=== PATIENT | female | born 1940 | race Caucasian/White ===

== ENCOUNTER 2024-02-24 06:57 | Day surgery (SDC) | payer MEDICARE, OTHER, SELFPAY ==
[2024-02-12 06:56] VITALS: BMI 21.2
[2024-02-24 11:12] VITALS: BMI 21.2
[2024-02-24 11:13] VITALS: BP 155/82
[2024-02-24] MEDS: TYLENOL 1000 MG PO (11:23)
[2024-02-24] MEDS: NORMOSOL-R/PLASMALYTE-A 1000 IV (11:36)
--- NOTE | 2024-02-24 12:00 | W.SUR.PREOP ---
Pre-Operative Surgical Note
-
I have examined this patient prior to the performance of the scheduled procedure.
The patient's condition is unchanged from the time of the current History and
Physical and the patient is able to undergo the scheduled procedure.
[2024-02-24 14:03] VITALS: BP 115/79
[2024-02-24 14:15] VITALS: BP 105/80
[2024-02-24 14:31] VITALS: BP 121/91
[2024-02-24 14:45] VITALS: BP 140/66
--- NOTE | 2024-02-24 14:51 | W.IMMPOSTOP ---
Surgical Immed Post Op Note
-
Primary Surgeon: ELIAS Hughes MD
Assisting Surgeon:
Pre-op Diagnosis: Scalp wound, basal cell carcinoma, history of Mohs
Post-op Diagnosis: Same
Procedure Performed: Removal of outer cortex of calvarium via burring, application of dermal substitute, 5 x 5 cm
Anesthesia Type: Sedation
Specimen / Cultures: None
Estimated Blood Loss: 15 cc
Complications: None
Operative Findings: As expected
--- NOTE | 2024-02-24 14:52 | OR.RPT ---
Operative Report
Operative Report
Date of surgery: 02/24/2024
Surgeon: Geremias Hughes MD
Preoperative diagnosis: Basal cell carcinoma, scalp wound, history of Mohs
Postoperative diagnosis: Same
Procedure:
1. Removal of outer cortex of calvarium via burring
2. Wound bed prep for graft, calvarium, 5 x 5 cm
3. Application of dermal substitute 5 x 5 cm, scalp
Anesthesia: Sedation
EBL: 10 cc
Complications: None
Indications for procedure: Patient is an 83-year-old female with a history of skin cancer status post Mohs surgery. She was left with a large calvarial defect in the parietal region. Attempts were made to manage this with wound care however the
paracranium desiccated leaving her with an open scalp defect with exposed bone over an area 5 x 5 cm. No infection was present. We discussed her options at length including adjacent tissue transfer via scalp flaps as well as removal of the outer
cortex of the calvarium with application of dermal substitute as a bridge to grafting or healing by secondary intention. She preferred to avoid additional incisions on her scalp and wanted to proceed with the application of dermal substitute. As
such a plan was made for burring of the outer cortex of the calvarium with application of Integra. Risks were reviewed at length including bleeding, graft failure, infection. She understood these risks desire to proceed and was consented
accordingly.
Procedure in detail: Patient was identified preoperatively and the surgical site was confirmed to be the posterior scalp and calvarium. All questions were answered consents were confirmed. Patient was taken back to the operating room placed in a
lateral decubitus position and anesthesia was provided via IV sedation. Timeout the patient safety was performed and was confirmed that preoperative antibiotics had been administered and SCDs were in place. Off the field, 1% lidocaine with
epinephrine was injected around the wound. The patient was prepped with Betadine solution and draped in the usual sterile fashion. Procedure began with the wound bed preparation consisting of excision of the periwound with a 15 blade. Burring was
then performed with a pineapple bur over the exposed outer cortex of the calvarium. This was done until healthy bleeding of the intracortical space was encountered. No defects were created with the inner cortex. Hemostasis was ensured and the
wound was thoroughly irrigated. A 5 x 5 sheet of Integra was then sutured over the defect with 4-0 chromic. A bolster dressing was applied with a series of silk sutures, Xeroform, cotton balls and surgical lubricant. Patient tolerated the
procedure well was performed out complication. All counts were correct at the end the case. She was taken the PACU for further care.
[2024-02-24 15:00] VITALS: BP 135/89
== END 2024-02-24 15:26 | disposition home or self-care (01) ==
LOC: SDS 06:57
PROVIDERS: ATTENDING PHYSICIAN Surgery Plastic and Reconstructive Surgery; FAMILY PHYSICIAN Family Medicine
DX: C44.41 Basal cell carcinoma of skin of scalp and neck (principal); Z98.890 Other specified postprocedural states
CPT/HCPCS: 15275; 15004; Q4108

== ENCOUNTER 2024-12-06 17:18 | Inpatient (IN) | payer MEDICARE, OTHER, SELFPAY ==
[2024-12-06 11:44] VITALS: BP 139/95
--- NOTE | 2024-12-06 15:17 | ED.GENMED ---
History of Present Illness
General
Chief Complaint: Insect Sting
Source: patient
Time Seen by Provider: 12/06/24 14:34
History of Present Illness
History of Present Illness:
84-year-old female with past medical history of hypertension, hyperlipidemia presenting to the emergency department at the request of primary care's office who evaluated the patient earlier today with concern for worsening cellulitis to the right
posterior thigh. Approximately 1 week ago patient noticed a tick on the back of her right leg which she was able to remove without any difficulty, 2 days later subsequently developed what appeared to be an erythema migrans rash, went to primary
care. Has been on doxycycline for the last 6 days. Despite this medication patient notes worsening erythema, pain and warmth, went to the primary care office today who referred the patient to the ER for anticipated admission for IV antibiotics.
Patient denies any fevers but does admit to some chills. She denies any headaches, visual disturbances, focal weakness or numbness, chest pain or shortness of breath, cough or any other concerns.
Past History
Past History
ED Past Medical History: HTN, Hypercholesterolemia and Other (Osteoporosis, osteoarthritis)
ED Past Surgical History: Gynecological (Hysterectomy) and Other (Cystocele, rectocele repair)
Social History
Tobacco: Non-smoker
Alcohol: None
Drug: None
Personal:
Living: with family
Employment: Retired
Family History
Family History: Other (Noncontributory)
Review of Systems
Review of Systems
All Other Systems: ROS reviewed and negative except as documented in HPI and ROS
Phy Exam
Physical Exam
Physical Exam:
GENERAL: Alert , in no apparent distress
EYE: conjunctiva clear
NECK: Supple
ENT: o/p clr, mmm.
CARDIAC: Regular rate and rhythm
LUNGS: Clear breath sounds bilaterally, no acute respiratory distress, no wheezes/rales/rhonchi
NEUROLOGICAL: Alert and oriented
SKIN: Warm and dry, posterior right thigh has significant erythema along the distal two thirds of the thigh going both medial and lateral but sparing the anterior aspect of the thigh. Erythema is a deep red, indurated, hot to the touch and tender,
nonblanching, none weeping
MUSCULOSKELETAL: well perfused.
PSYCH: Normal and appropriate interaction.
Scores
Heart Failure Risk
Heart Failure Risk Score: Not Applicable
Heart Score for Chest Pain Patients
STEMI patient?: Not applicable
Withdrawal Assessment of Alcohol
Withdrawal Assessment Completed?: Not applicable
Course
Orders/Labs/Results
Orders:
Orders
12/06/24 14:44
Basic Metabolic Panel Urgent
CRP [C-Reactive Protein] Urgent
Complete Blood Count/With Diff Urgent
ESR [Erythrocyte Sed Rate] Urgent
Lyme Progressive Urgent
Venous Doppler Lwr Ext Rt [US Periph Venous LOWER Ext RT] Urgent
Comment:
Reason For Exam: edema, erythema
12/06/24 14:49
Piperacillin/Tazo 3.375 Gram [Zosyn] 3.375 gram in 50 ml IV NOW
12/06/24 15:19
Vancomycin [Vancocin] 2,000 mg 0.9% Sodium Chloride 500 ml [Nss] 500 ml IV NOW
Vital Signs
Initial and Last Documented VS:
Initial Vital Signs
Temp Pulse Resp BP Pulse Ox
98.0 F 94 22 139/95 94
12/06/24 11:44 12/06/24 11:44 12/06/24 11:44 12/06/24 11:44 12/06/24 11:44
Last Documented Vital Signs
Temp Pulse Resp BP Pulse Ox
98.7 F 84 18 118/74 94
12/06/24 15:27 12/06/24 15:27 12/06/24 15:27 12/06/24 15:27 12/06/24 15:27
MDM/Problems Addressed
Differential Diagnosis Includes:
Cellulitis
Abscess
Slightly less concern for erythema migrans/Lyme rash
DVT/SVT
MDM/Problems Addressed:
84-year-old female presenting to the ER at the request of her primary care provider for evaluation of worsening erythema to the left posterior thigh. Patient has been on oral doxycycline for 6 days with a presumed erythema migrans rash but has not
had any improvement. Patient is in no acute distress and otherwise afebrile. Will check labs, ultrasound and initiate treatment with Vanco and Zosyn. Anticipate admission
*Radiology
Radiology exam reviewed: radiology read reviewed
*Pulse Oximetry
SaO2: 94
Oxygen Mode of Delivery: Room air
Patient hypoxic: no
*Critical Care Note
Total Time (30-74mins, 75-104mins- exclusive of procedures): Not Applicable
Data Reviewed
Review of Other/Old Records Reveals: Labs and Records
Patient Management
Discussion with other providers: Hospitalist
Escalation/DeEscalation of care consider admission/obs:
Ultrasound negative for DVT. Will admit for further IV antibiotic treatment and monitoring. Hospitalist team accepts for continued evaluation.
ED Attending Note
-
Portions of this chart may have been created with voice recognition software.� Occasional wrong word or��sound alike� substitutions may have occurred due to the inherent limitations of voice recognition software.
Discharge Plan
Departure
Patient Disposition: Admit
Date of Disposition: 12/06/24
Time of Disposition: 16:01
Presentation/result/management discussed w/ accepting MD/DO: Hospitalist
Discharge Problem:
Cellulitis of right thigh
Prescriptions:
No Action
atorvastatin 10 MG tablet
10 mg PO QPM Qty: 0
atenolol 25 MG tablet
25 mg PO QPM Qty: 0
clonazepam 0.5 MG tablet
0.5 mg PO HS
calcium carbonate-vitamin D3 [Calcium 500 + D] 1 EACH tablet
1 tab PO QPM
polyethylene glycol 3350 [Miralax] 17 gram Powder In Packet
8.5 g PO Q48H
cetirizine [Zyrtec] 10 mg Tablet
10 mg PO DAILYPRN PRN (Reason: allergies)
meloxicam 7.5 mg Tablet
7.5 mg PO DAILY
fluticasone propionate [Flonase] 50 mcg/actuation [place],Suspension
1 spray INTRANASAL DAILYPRN PRN (Reason: allergies)
ipratropium bromide [Atrovent] 21 mcg (0.03 %) Oxford,Non-Aerosol
2 spray INTRANASAL DAILYPRN PRN (Reason: congestion)
melatonin 5 mg Tablet
5 mg PO HS
Theragen Tablet
1 tab PO DAILY
doxycycline hyclate 100 mg Capsule
100 mg PO BID
Rx Instructions:
for 14 days starting 11/30/24
clobetasol 0.05 % ointment
1 applic TOPICAL BID
Referrals:
Mauricio Zee MD [Family Provider, Family Practice]
Interventions
Interventions:
*Risk Screen - Suicide Last Done: 12/06/24 11:44
*General Assessment Last Done: 12/06/24 11:44
*Neglect/Abuse Screening Last Done: 12/06/24 11:44
*ED- Fall Risk Assessment Last Done: 12/06/24 11:44
*ED COVID-19 Vaccine History Last Done: 12/06/24 11:44
Discharge Date and Time
Print Language: MALIAN
[2024-12-06 15:27] VITALS: BP 118/74
--- NOTE | 2024-12-06 16:22 | HPS.HSE ---
Addendum entered and electronically signed by DAYNA Deshpadne 12/06/24 18:11:
itching after getting vancomycin, changed to ancef
Original Note:
Family Physician
-
Family Physician: Mauricio Zee
Chief Complaint
-
thigh redness
History of Present Illness
84-year-old female with past medical history of hypertension, hyperlipidemia,basal cell carcinoma, presenting to the emergency department at the request of primary care's office who evaluated the patient earlier today with concern for worsening
cellulitis to the right posterior thigh. Approximately 1 week ago patient noticed a tick on the back of her right leg which she was able to remove without any difficulty, 2 days later subsequently developed what appeared to be an erythema migrans
rash, went to primary care. Has been on doxycycline for the last 6 days. Despite this medication patient notes worsening erythema, pain and warmth, went to the primary care office today who referred the patient to the ER for anticipated admission
for IV antibiotics. Patient denies any fevers but does admit to some chills. She denies any headaches, visual disturbances, focal weakness or numbness, chest pain or shortness of breath, cough. patient denied abdominal pain,n,v,d. stated poor
appetite. denied dysuria or hematuria.
duplex negative for DVT. Patient received a dose of Zosyn, Vanco in ER. ESR CRP and Lyme sent from ER. Further management
Medical History
Past Medical History
Past Medical History: Reports Other
Additional Past Medical History:
Overactive bladder
Anxiety
Osteoporosis
Hyperlipidemia
Depression
Hypertension
Thoracic aortic aneurysm
Asthma
Past Surgical History: Reports Other
Additional Past Surgical History:
Left hemicolectomy
Hysterectomy
Social History
Tobacco: Non-smoker
Alcohol: None
Drug: None
Family History
Family History: Not pertinent
Allergies / Home Medications
Allergies reflects when Allergies were last updated in [facility].
Home Medications with original date entered in [facility]
Allergy/Medication List:
Allergies
Allergy/AdvReac Type Severity Reaction Status Date / Time
alendronate sodium (From Allergy Swelling Verified 12/06/24 11:50
Fosamax)
amoxicillin Allergy Nausea / Verified 12/06/24 11:50
Vomiting
bacitracin (From Neosporin Allergy Rash Verified 12/06/24 11:50
([id number]))
clarithromycin (From Biaxin) Allergy migraine Verified 12/06/24 11:50
neomycin sulfate (From Allergy Rash Verified 12/06/24 11:50
Neosporin ([id number]))
oxycodone HCl (From Percocet) Allergy Nausea / Verified 12/06/24 11:50
Vomiting
Penicillins Allergy Nausea / Verified 12/06/24 11:50
Vomiting
polymyxin B (From Neosporin Allergy Rash Verified 12/06/24 11:50
([id number]))
combid Allergy stopped Uncoded 12/06/24 11:50
urinating
environmental Allergy nasal Uncoded 12/06/24 11:50
congestion
Home Medications
atenolol 25 mg tablet 25 mg PO QPM ##0 11/30/14
atorvastatin 10 mg tablet 10 mg PO QPM ##0 11/30/14
calcium 500 mg (as carbonate)-vitamin D3 10 mcg (400 unit) tablet (Calcium 500 + D) 1 tab PO QPM 03/08/15
clonazepam 0.5 mg tablet 0.5 mg PO HS 03/08/15
cetirizine 10 mg tablet (Zyrtec) 10 mg PO DAILYPRN PRN allergies 02/17/24
fluticasone propionate 50 mcg/actuation nasal spray,suspension 1 spray intranasal DAILYPRN PRN allergies 02/17/24
ipratropium bromide 21 mcg (0.03 %) nasal spray 2 spray intranasal DAILYPRN PRN congestion 02/17/24
melatonin 5 mg tablet 5 mg PO HS sleep 02/17/24
meloxicam 7.5 mg tablet 7.5 mg PO DAILY 02/17/24
polyethylene glycol 3350 17 gram oral powder packet (Miralax) 8.5 g PO Q48H 02/17/24
clobetasol 0.05 % topical ointment 1 applic topical BID moes surgery scalp 12/06/24
doxycycline hyclate 100 mg capsule 100 mg PO BID 12/06/24
therapeutic multivitamin 1 tab PO DAILY 12/06/24
Review of Systems
-
Constitutional: Reports No Symptoms
EENT: Reports No Symptoms
Respiratory: Reports No Symptoms
Cardiac: Reports No Symptoms
Abdomen/GI: Reports No Symptoms
: Reports No Symptoms
Musculoskeletal: Reports No Symptoms
Skin: Reports Other (Right thigh redness)
Neurological: Reports No Symptoms
Endocrine: Reports No Symptoms
Hematologic/Lymphatic: Reports No Symptoms
Psych: Reports No Symptoms
Physical Exam
Vital Signs
Vital Signs
Temp Pulse Resp BP Pulse Ox
98.7 F 84 18 118/74 94
12/06/24 15:27 12/06/24 15:27 12/06/24 15:27 12/06/24 15:27 12/06/24 15:27
Physical Exam
General: Well Developed, Well Nourished and No Apparent Distress
HEENT: NormoCephalic, Moist mucous membranes and Atraumatic
Respiratory: Clear
Cardiac: S1/S2 and Regular Rhythm; No Murmur or Rub
GI: Soft, Non Tender, Non Distended and Normal Bowel Sounds; No Organomegaly
Rectal: Deferred by Provider
Musculoskeletal: No Clubbing, No Cyanosis and No Edema
Skin: Rash (Warm and dry, posterior right thigh has significant erythema along the distal two thirds of the thigh going both medial and lateral but sparing the anterior aspect of the thigh. Erythema is a deep red, indurated, hot to the touch and
tender, nonblanching, none weeping)
Neuro: Nonfocal/grossly intact
Data Reviewed
-
Lab Data: Labs Reviewed by me
Impression/Plan
-
# Right thigh cellulitis
- Duplex no evidence of DVT
-Lyme pending
-Vanco and Zosyn can
-Tylenol as needed for fever pain
-Continue to monitor
# History for hypertension
- Atenolol continued
# Hyperlipidemia
-Statin continued
# Basal cell carcinoma on the back of head
-Continue clobetasol twice a day
# Anxiety
-Clonazepam continued
-Melatonin continued for sleep
# DVT prophylaxis
-Lovenox subcu
# CODE STATUS
-Full code
[2024-12-06] MEDS: ZOSYN 50 IV (16:30)
--- NOTE | 2024-12-06 16:48 | W.PN.UPDATE ---
Update Note
Progress Note Update
This note serves as an addendum to the H&P by truck sales representative CANDY
Angelica ESTUARDO
HPI
84F HX hypertension, hyperlipidemia, basal cell carcinoma, presenting to the emergency department at the request of primary care's office who evaluated the patient earlier today with concern for worsening cellulitis to the right posterior thigh.
PE
Gen: not toxic
Skin; . Warm and dry, posterior right thigh has significant erythema along the distal two thirds of the thigh going both medial and lateral but sparing the anterior aspect of the thigh.
Erythema is a deep red, indurated, hot to the touch and tender, nonblanching, none weeping
Relevant data
ASSESSMENT & PLAN
Recent tick on the back of right leg
- able to remove without any difficulty, 2 days later subsequently developed what appeared to be an erythema migrans rash
- seen by primary care.
- has been on doxycycline for the last 6 days.
- ID consult
Right thigh cellulitis
NEG US Elizabeth for DVT
- Duplex no evidence of DVT
- Lyme pending
- empiric Vanco and Zosyn can
-Tylenol as needed for fever pain
HX hypertension
- Atenolol continued
Hyperlipidemia
-Statin continued
Basal cell carcinoma on the back of head
-Continue clobetasol twice a day
DVT Px: LMWH
Code: Full
Ip MS
[2024-12-06 16:58] LABS: Blood Urea Nitrogen 19 mg/dl (7-17); Calcium 9.4 mg/dl (8.4-10.2); Carbon Dioxide 27 mmol/L (22-30); Chloride 103 mmol/L (98-107); Glucose 102 mg/dl (70-99); Potassium 4.4 mmol/L (3.5-5.1); Sodium 136 mmol/L (135-145); eGFR > 60.00
[2024-12-06] MEDS: VANCOCIN 540 MG IV (17:21)
[2024-12-06 17:32] VITALS: BMI 26.4
[2024-12-06 17:33] VITALS: BP 105/81
[2024-12-06 17:58] LABS: Hematocrit 40.3 % (37.0-47.0); Hemoglobin 13.2 g/dL (12.0-16.0); Mean Corp Hgb Conc. 32.8 g/dL (33.0-37.0); Mean Corpuscular Hgb 29.1 pg (27.0-31.0); Mean Corpuscular Volume 88.8 fL (81.0-99.0); Mean Platelet Volume 10.1 fL (7.4-10.4); Platelet Count 238 10^3/uL (130-400); Red Blood Cell Count 4.54 10^6/uL (4.20-5.40); Red Cell Dist. Width 12.8 % (11.5-14.5); White Blood Cell Count 8.9 10^3/uL (4.8-10.8)
[2024-12-06 18:04] LABS: Atypical Lymphocytes 1 %; Eosinophils 10 % (0-6); Lymphocytes 13 % (20-51); Monocytes 4 % (2-9); Platelets Checked Yes; Segmented Neutrophils 72 % (42-75)
[2024-12-06 18:06] LABS: Normal RBC Morphology No; Ovalocytes 1+; Poikilocytosis 1+; Total Cells Counted 100
[2024-12-06 18:39] LABS: Erythrocyte Sed Rate 1 mm/hour (0-20)
[2024-12-06 18:48] VITALS: BP 144/75
[2024-12-06 19:14] VITALS: BMI 23.2
[2024-12-06] MEDS: OSCAL 500 + D 500 MG PO (19:32)
[2024-12-06] MEDS: LIPITOR 10 MG PO (19:32)
[2024-12-06] MEDS: CLOBETASOL PROPIONATE 0.05% OINTMENT 1 APPLIC TOPICAL (19:32)
[2024-12-06] MEDS: TENORMIN 25 MG PO (19:32)
[2024-12-06] MEDS: LOVENOX 40 MG SC (19:32)
[2024-12-06] MEDS: ANCEF 10 IV (19:33)
[2024-12-06] MEDS: KLONOPIN 0.5 MG PO (20:58)
[2024-12-06] MEDS: MELATONIN 5 MG PO (21:00)
[2024-12-06 23:00] VITALS: BP 110/57
[2024-12-07] MEDS: ANCEF 10 IV ×3 (04:11→20:59)
[2024-12-07 07:00] VITALS: BP 125/68
--- NOTE | 2024-12-07 07:49 | W.PN.HOSP.TC ---
Today's Communication/Plan
-
cont cefazolin, resume doxycycline
calamine lotion and benadryl prn itching
wound care
pain control
Assessment / Plan
Assessment / Plan
Physical Exam
General: No acute distress, appears comfortable at this time
HEENT: NormoCephalic, Moist mucous membranes and Atraumatic Hard of Hearing
Respiratory: Clear
Cardiac: S1/S2 and Regular Rhythm; No Murmur or Rub
GI: Soft, Non Tender, Non Distended and Normal Bowel Sounds
Musculoskeletal: No Clubbing, No Cyanosis and No Edema
Skin: Rash erythema right thigh with posterior ulceration noted
Neuro: AOx3 conversant coherent
84F HTN HLD Carotid stenosis s/p b/l CEA here with worsening Rt thigh erythema cellulitis following suspected Tick Bite.
# Right thigh cellulitis
# Right thigh posterior ulceration
#hx tick bite
- Duplex no evidence of DVT
-Lyme pending
-Cont Ancef and Doxycycline
-ID eval appreciated
-Tylenol as needed for fever pain
-Continue to monitor
-calamine lotion prn itching
-benadryl prn itching/anxiety/sleep
-Wound care
#arthritis
cont home meloxicam
prn Tylenol
# History for hypertension
- Atenolol continued
# Hyperlipidemia
-Statin continued
# Basal cell carcinoma on the back of head
-Continue home clobetasol twice a day
# Anxiety
-Clonazepam continued
-Melatonin continued for sleep
-prn Benadryl as above
# DVT prophylaxis
-Lovenox subcu
# CODE STATUS
-Full code
I spent a total of 45 minutes with the patient or on the floor. More than 50% of this time involved counseling and coordination of care.
Anticipated Discharge: 24 - 48 hours
Subjective/Interval History
-
Date of Service: December 07, 2024
No acute distress sitting up comfortably in bed. Reports overall feeling well, improvement in RLE erythema. Endorses itching.
Objective Data
-
Vital Signs:
Vital Signs
Temp Pulse Resp BP Pulse Ox
97.9 F 60 16 110/57 96
12/06/24 23:00 12/06/24 23:00 12/06/24 23:00 12/06/24 23:00 12/06/24 23:00
I&O
12/06/24 12/07/24 12/08/24
06:59 06:59 06:59
Intake Total 240 / 240
Balance 240 / 240
[2024-12-07] MEDS: CLOBETASOL PROPIONATE 0.05% OINTMENT 1 APPLIC TOPICAL ×2 (08:41→21:31)
[2024-12-07] MEDS: MOBIC 7.5 MG PO (13:09)
[2024-12-07 15:00] VITALS: BP 154/80
--- NOTE | 2024-12-07 16:16 | CON.ID ---
Consultation
-
Date/Time Consultation Requested: November
Date/Time Consultation Performed: November
Requesting Provider: Dr Bliss
Performing Provider: Suzie Osorio MD
Reason for Consultation: tick bite to posterior thigh with subsequent erythema,tenderness ,puritis
Chief Complaint / Past History
Chief Complaint
tick bite to posterior thigh with erythema, tenderness and pruritis
History of Present Illness
Patient states that she was taking a shower after walking her dog when she felt something on her posterior thigh and found and removed a tick which was black without markings attached to her skin. Upon removal there was no blood and no pain.
Subsequently over next days she notice erythema, tenderness, pruritis without fever or pain. She was seen in [facility] as well as by PMD and was placed on Doxycycline for possible tick bite related infection.
Past History
Past Medical History: Cancer, Hypercholesterolemia and Venous Hypertension
Past Surgical History: Other (Mohl's surgery for basal cell carcinoma of scalp)
Allergy History:
alendronate sodium (From Fosamax) Allergy (Verified 12/06/24 11:50)
Swelling
amoxicillin Allergy (Verified 12/06/24 11:50)
Nausea / Vomiting
bacitracin (From Neosporin ([id number])) Allergy (Verified 12/06/24 11:50)
Rash
clarithromycin (From Biaxin) Allergy (Verified 12/06/24 11:50)
migraine
neomycin sulfate (From Neosporin ([id number]-[id number])) Allergy (Verified 12/06/24 11:50)
Rash
oxycodone HCl (From Percocet) Allergy (Verified 12/06/24 11:50)
Nausea / Vomiting
Penicillins Allergy (Verified 12/06/24 11:50)
Nausea / Vomiting
polymyxin B (From Neosporin ([id number])) Allergy (Verified 12/06/24 11:50)
Rash
combid Allergy (Uncoded 12/06/24 11:50)
stopped urinating
environmental Allergy (Uncoded 12/06/24 11:50)
nasal congestion
Medications Reviewed: Yes
Social History
Tobacco: Non-Smoker
Alcohol: Occasional
Drug: None
Personal:
Living: With Family
Employment: Not Employed
Family History
Family History: Not Pertinent
Review of Systems
Review of Systems
Skin / Hair / Nails: Rash and Pruritis; Negative Urticaria
All systems: All other systems were reviewed and were negative
Vital Signs
Temp Pulse Resp BP Pulse Ox
97.8 F 80 17 154/80 99
12/07/24 15:00 12/07/24 15:00 12/07/24 15:00 12/07/24 15:00 12/07/24 15:00
Physical Exam
Physical Exam
Constitutional: No Acute Distress, Comfortable and Non-toxic
Head: Normocephalic
Eyes: Pupils Equal, Pupils Round, No Conjunctival Hemorrhage and Sclera Anicteric
Pharynx: Benign
Oral: No Thrush and No Ulcers
Cardiovascular: Regular Rate
Pulmonary: Clear and Non Labored
Gastrointestinal: Soft, Non Tender, Non Distended, Decreased Bowel Sounds, No Rebound and No Guarding
Skin: Warm, Dry and Rash (posterior thigh with erythema involving upper leg with streaking down to upper portion of lower leg. The slin is hot and somewhat tender with patient describing pruritis at night when she tries to sleep. The rash has
gradually extended from bite site to the major portion of posterior thigh to upper )
Wound: Other (See above//scalp wound posterior at site of pprevious excision of basal carcinoma)
Neurological: Awake, Alert, Oriented, AO x 3 and Normal Gait
Psychological: Calm
Lines: PIV
Lab / Diagnostic Study Results
12/06/24 16:35
12/06/24 16:35
Total Counted 100 12/06/24 16:35
Segmented Neutrophils 72 % (42-75) 12/06/24 16:35
Band Neutrophils Not Reportable 12/06/24 16:35
Lymphocytes (Manual) 13 % (20-51) L 12/06/24 16:35
Eosinophils (Manual) 10 % (0-6) H 12/06/24 16:35
ESR 1 mm/hour (0-20) 12/06/24 16:35
C-Reactive Protein 22.00 mg/L (0.0-10.00) H 12/06/24 16:35
Microbiology Results
Micro:
12/06/24 22:37 MRSA Screen - Pending
Nose
Assessment / Plan
1. Probable tick bite with sequelae of erythema migrans suggestive of Lyme Disease with laboratory studies pending
Symptomatic relief of pruritis with Calamine lotion has been given
2. Monitor CBC,diff
3. In older patient obtain EKG 12 lead to assess for heart block
4. For additional symptoms evaluate for other tick-borne disease ie anaplasma, erlichia, RMSF , babesiosi
5. Doxycycliine drug of choice for early disease
6. Basal cell carcinoma scalp with outpatient follow up planned with continuation in hospital of local care and topical treatment as instructed by dermatology
Care Review
Plan reviewed with: Nurse and Physician
Total Time Spent with Patient (in minutes): 55
--- NOTE | 2024-12-07 16:46 | CM ---
Alert awake oriented patient who lives with her Moises in a 1 story home with 1 steps to enter and 3 steps to bed/bathroom. She is independent in activates of daily living.She does drive .She uses a cane.
Had [facility] in past . No SNF hx
Pharmacy [facility]
PCP Dr Zee
PLAN Home with no needs
[2024-12-07] MEDS: OSCAL 500 + D 500 MG PO (17:32)
[2024-12-07] MEDS: TENORMIN 25 MG PO (17:32)
[2024-12-07] MEDS: LIPITOR 10 MG PO (17:32)
[2024-12-07] MEDS: LOVENOX 40 MG SC (17:33)
[2024-12-07] MEDS: VIBRAMYCIN 100 MG PO (21:00)
[2024-12-07] MEDS: CALAMINE LOTION 180 ML TOPICAL (21:01)
[2024-12-07] MEDS: KLONOPIN 0.5 MG PO (21:36)
[2024-12-07] MEDS: MELATONIN 5 MG PO (21:37)
[2024-12-07] MEDS: BENADRYL ELIXIR 12.5 MG PO (21:37)
[2024-12-07] MEDS: MIRALAX 17 GRAMS PO (21:51)
[2024-12-07 23:00] VITALS: BP 124/69
[2024-12-08] MEDS: ANCEF 10 IV ×3 (04:23→20:31)
[2024-12-08 05:28] LABS: Hematocrit 33.5 % (37.0-47.0); Hemoglobin 11.4 g/dL (12.0-16.0); Mean Corpuscular Hgb 29.3 pg (27.0-31.0); Mean Corpuscular Volume 86.1 fL (81.0-99.0); Mean Platelet Volume 10.1 fL (7.4-10.4); Platelet Count 193 10^3/uL (130-400); Red Blood Cell Count 3.89 10^6/uL (4.20-5.40); Red Cell Dist. Width 12.9 % (11.5-14.5); White Blood Cell Count 8.1 10^3/uL (4.8-10.8)
[2024-12-08 06:23] LABS: Blood Urea Nitrogen 16 mg/dl (7-17); Carbon Dioxide 29 mmol/L (22-30); Chloride 108 mmol/L (98-107); Estimated Creatinine Clearance 49 ml/min; Glucose 102 mg/dl (70-99); Magnesium 2.1 mg/dl (1.6-2.3); Phosphorus 3.5 mg/dl (2.5-4.5); Potassium 4.4 mmol/L (3.5-5.1); Sodium 139 mmol/L (135-145); eGFR > 60.00
[2024-12-08] MEDS: MOBIC 7.5 MG PO (07:55)
[2024-12-08] MEDS: VIBRAMYCIN 100 MG PO ×2 (07:55→20:31)
[2024-12-08] MEDS: CLOBETASOL PROPIONATE 0.05% OINTMENT 1 APPLIC TOPICAL ×2 (07:57→20:31)
[2024-12-08 08:10] VITALS: BP 138/79
--- NOTE | 2024-12-08 09:17 | W.PN.HOSP.TC ---
Today's Communication/Plan
-
cont current abx
monitor for improvement RLE cellulitis
wound care
Assessment / Plan
Assessment / Plan
Physical Exam
General: No acute distress, appears comfortable at this time
HEENT: NormoCephalic, Moist mucous membranes and Atraumatic Hard of Hearing
Respiratory: Clear
Cardiac: S1/S2 and Regular Rhythm; No Murmur or Rub
GI: Soft, Non Tender, Non Distended and Normal Bowel Sounds
Musculoskeletal: No Clubbing, No Cyanosis and No Edema
Skin: Rash erythema right thigh with posterior ulceration noted
Neuro: AOx3 conversant coherent
84F HTN HLD Carotid stenosis s/p b/l CEA here with worsening Rt thigh erythema cellulitis following suspected Tick Bite.
# Right thigh cellulitis
# Right thigh posterior ulceration
#hx tick bite
- Duplex no evidence of DVT
-Lyme serology pending
-Cont Ancef and Doxycycline
-ID eval appreciated
-Tylenol as needed for fever pain
-Continue to monitor
-calamine lotion prn itching
-benadryl prn itching/anxiety/sleep
-Wound care
#arthritis
cont home meloxicam
prn Tylenol
# History for hypertension
- Atenolol continued
# Hyperlipidemia
-Statin continued
# Basal cell carcinoma on the back of head
-Continue home clobetasol twice a day
# Anxiety
-Clonazepam continued
-Melatonin continued for sleep
-prn Benadryl as above
# DVT prophylaxis
-Lovenox subcu
# CODE STATUS
-Full code
I spent a total of 40 minutes with the patient or on the floor. More than 50% of this time involved counseling and coordination of care.
Anticipated Discharge: 24 - 48 hours
Subjective/Interval History
-
Date of Service: December 08, 2024
No acute distress, erythema RLE persists. Patient otherwise reports feeling well. Ambulatory without need for assist device.
Objective Data
-
Labs:
Laboratory Results
12/08/24
05:06
WBC 8.1
Hgb 11.4 L
Hct 33.5 L
Plt Count 193
Sodium 139
Potassium 4.4
Chloride 108 H
Carbon Dioxide 29
BUN 16
Creatinine 0.7
Glucose 102 H
Calcium 9.0
Vital Signs:
Vital Signs
Temp Pulse Resp BP Pulse Ox
97.4 F 75 16 138/79 98
12/07/24 23:00 12/08/24 08:10 12/08/24 08:10 12/08/24 08:10 12/08/24 08:10
I&O
12/07/24 12/08/24 12/09/24
06:59 06:59 06:59
Intake Total 660 / 660 480 / 480
Balance 660 / 660 480 / 480
--- NOTE | 2024-12-08 11:09 | WOUNDNOTE ---
BILATERAL POSTERIOR THIGHS
--- NOTE | 2024-12-08 11:10 | WOUNDNOTE ---
RIGHT POSTERIOR THIGHS
--- NOTE | 2024-12-08 11:11 | WOUNDNOTE ---
RIGHT POSTERIOR/LATERAL THIGH
--- NOTE | 2024-12-08 11:11 | WOUNDNOTE ---
RIGHT INNER THIGH
--- NOTE | 2024-12-08 11:12 | WOUNDNOTE ---
BILATERAL POSTERIOR THIGHS
--- NOTE | 2024-12-08 11:17 | WOUNDNOTE ---
[facility] RN note: Patient admitted with right thigh cellulitis s/p tick bite
See H&P for complete history.
PMH: HTN, arthritis,
Wound Location and type/assessment: Patient admitted with right thigh wound and cellulitis. Periwound is macerated and dressing was saturated with serous drainage. Photos taken of large area of cellulitis. Calamine lotion has been ordered for
itching and patient reports results with Calamine use. Heels and sacrum are intact.
Appetite: Good.
Pressure redistribution devices in place: Versa Care Accumax. Patient is fully independent and turns easily in bed.
Plan: Wound care provided as ordered. Sure prep applied to protect macerated skin and alginate placed over wound to help manage drainage. Wound care explained to patient and this senior copywriter suggested following up at [facility] if needed.
Will confirm orders with hospitalist and update nurse. Updated care plan and will follow as needed.
Note to case management of equipment requested for discharge:
Recommend follow up at wound care center upon discharge.
[2024-12-08 13:28] LABS: Lyme Antibody Screen, EIA Negative (Negative)
--- NOTE | 2024-12-08 13:31 | W.PN.ID1 ---
Date of Service
Date of Service: December 08, 2024
Today's Communication
continue current antibiotic
Assessment / Plan
1. Probable tick bite with insect removed by patient from her leg with sequelae of erythema migrans suggestive of Lyme Disease with laboratory studies pending
Symptomatic relief of pruritis with Calamine lotion has been given ,small area of superficial erosion
Wound care seeing patient
2. Monitor skin erythema with decreased induration today and slight fading of erythema with no progression beyond inked margins,generally improved
Consider D/C to home tomorrow if improvement continues
3. In older patient obtain EKG 12 lead to assess for heart block
4. For additional symptoms evaluate for other tick-borne disease ie anaplasma, erlichia, RMSF , babesiosis
5. Doxycycline drug of choice for early disease to be continued 10 days 100 mg po Q 12 H
6. Basal cell carcinoma scalp with outpatient follow up planned with continuation in hospital of local care and topical treatment as instructed by dermatology
Chief Complaint
-: Cellulitis (erythema migrans in leg area of recent tick bite with decreasing edema and continued erythema without pain and less pruritis)
Subjective / Review of Systems
Review of Systems: No Fever, No Chills, No Headache, No Pharyngitis, No Stiff Neck, No Swollen Lymph Nodes, No Cough, No Sputum Production, No Chest Pain, No Palpitations, No Abdominal Pain, No Nausea, No Vomiting, No Diarrhea, No Dysuria, No Joint
Pain and Skin Rash
Vital Signs / Physical Exam
Vital Signs
Vital Signs
Temp Pulse Resp BP Pulse Ox
97.4 F 75 16 138/79 98
12/07/24 23:00 12/08/24 08:10 12/08/24 08:10 12/08/24 08:10 12/08/24 08:10
Physical Exam
Constitutional: No Acute Distress, Well Developed, Comfortable and Non-toxic
Head: Normocephalic
Eyes: Pupils Equal, Pupils Round, No Conjunctival Hemorrhage and Sclera Anicteric
Oropharyngeal: Benign
Cardiovascular: Regular Rate
Pulmonary: Clear and Non Labored
Gastrointestinal: Soft, Non Tender, Non Distended, Normal Bowel Sounds, No Rebound and No Guarding
Extremities: Erythema (in leg area at site of recent tick bite)
Skin: Warm and Rash (decreased induration, decreased erythema)
Wound: None
Neurological: Awake, Alert, Oriented, AO x 3, Normal Gait and No Motor Deficits
Psychological: Calm
Lines: PIV
Objective Data
Lab Data
Lab Results
12/08/24 05:06
12/08/24 05:06
ESR 1 mm/hour (0-20) 12/06/24 16:35
Estimated Creat Clear 49 ml/min 12/08/24 05:06
C-Reactive Protein 22.00 mg/L (0.0-10.00) H 12/06/24 16:35
Most recent labs reviewed.
Microbiology: Report Reviewed
Micro Results:
12/06/24 22:37 MRSA Screen - Final
Nose No Methicillin Resistant Staphylococcus aureus isolated.
Care Review
Total Time Spent with Patient (in minutes): wound care team
35
[2024-12-08 15:00] VITALS: BP 114/71
[2024-12-08] MEDS: OSCAL 500 + D 500 MG PO (17:07)
[2024-12-08] MEDS: LOVENOX 40 MG SC (17:07)
[2024-12-08] MEDS: LIPITOR 10 MG PO (17:07)
[2024-12-08] MEDS: TENORMIN 25 MG PO (17:08)
[2024-12-08] MEDS: KLONOPIN 0.5 MG PO (21:06)
[2024-12-08] MEDS: MELATONIN 5 MG PO (21:06)
[2024-12-08] MEDS: BENADRYL ELIXIR 12.5 MG PO (21:06)
[2024-12-08 23:23] VITALS: BP 135/65
[2024-12-09] MEDS: ANCEF 10 IV ×2 (03:16→12:06)
--- NOTE | 2024-12-09 03:34 | W.PN.UPDATE ---
Update Note
Progress Note Update
Per nursing staff, patient had 4 episodes of diarrhea. afebrile. Patient currently on Doxycycline po and cefazolin. C-diff ordered and will start the patient on probiotic daily.
[2024-12-09] MEDS: VISBIOME 2 CAP PO (03:37)
--- NOTE | 2024-12-09 03:45 | PTCARENOTE ---
Pt c/o 4 eps of diarrhea. 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 Stat probiotics and cdiff test ordered. Will continue to monitor pt.
[2024-12-09 05:52] LABS: Hematocrit 35.9 % (37.0-47.0); Hemoglobin 11.7 g/dL (12.0-16.0); Mean Corp Hgb Conc. 32.6 g/dL (33.0-37.0); Mean Corpuscular Hgb 28.7 pg (27.0-31.0); Mean Platelet Volume 10.2 fL (7.4-10.4); Platelet Count 200 10^3/uL (130-400); Red Blood Cell Count 4.08 10^6/uL (4.20-5.40); Red Cell Dist. Width 12.8 % (11.5-14.5); White Blood Cell Count 8.1 10^3/uL (4.8-10.8)
[2024-12-09 06:08] LABS: Blood Urea Nitrogen 13 mg/dl (7-17); Calcium 8.7 mg/dl (8.4-10.2); Carbon Dioxide 22 mmol/L (22-30); Chloride 108 mmol/L (98-107); Estimated Creatinine Clearance 57 ml/min; Glucose 92 mg/dl (70-99); Phosphorus 3.3 mg/dl (2.5-4.5); Potassium 4.3 mmol/L (3.5-5.1); Sodium 136 mmol/L (135-145); eGFR > 60.00
--- NOTE | 2024-12-09 06:57 | W.PN.HOSP.TC ---
Today's Communication/Plan
-
switch ancef to vancomycin
Cont doxycycline
cont wound care
monitor cellutis
Imdur prn diarrhea
Assessment / Plan
Assessment / Plan
Physical Exam
General: No acute distress, appears comfortable at this time
HEENT: NormoCephalic, Moist mucous membranes and Atraumatic Hard of Hearing
Respiratory: Clear
Cardiac: S1/S2 and Regular Rhythm; No Murmur or Rub
GI: Soft, Non Tender, Non Distended and Normal Bowel Sounds
Musculoskeletal: No Clubbing, No Cyanosis and No Edema
Skin: Rash erythema right thigh with posterior ulceration noted
Neuro: AOx3 conversant coherent
84F HTN HLD Carotid stenosis s/p b/l CEA here with worsening Rt thigh erythema cellulitis following suspected Tick Bite.
# Right thigh cellulitis
# Right thigh posterior ulceration
#hx tick bite
- Duplex no evidence of DVT
-Lyme serology neg though false neg are known to occur w/in 3-4 weeks of infection
-Cont Doxycycline, Ancef switched to Vancomycin d/t lack of improvement erythema
-ID eval appreciated
-Tylenol as needed for fever pain
-Continue to monitor
-calamine lotion prn itching
-benadryl prn itching/anxiety/sleep
-Wound care
#arthritis
cont home meloxicam
prn Tylenol
# History for hypertension
- Atenolol continued
# Hyperlipidemia
-Statin continued
# Basal cell carcinoma on the back of head
-Continue home clobetasol twice a day
# Anxiety
-Clonazepam continued
-Melatonin continued for sleep
-prn Benadryl as above
# DVT prophylaxis
-Lovenox subcu
# CODE STATUS
-Full code
I spent a total of 40 minutes with the patient or on the floor. More than 50% of this time involved counseling and coordination of care.
Anticipated Discharge: 24 - 48 hours
Subjective/Interval History
-
Date of Service: December 09, 2024
no acute distress, ambulatory without need for assist device. Reports overall feeling well. Noted Diarrhea since improved with imdur. RLE thigh erythema persists.
Objective Data
-
Labs:
Laboratory Results
12/09/24
05:07
WBC 8.1
Hgb 11.7 L
Hct 35.9 L
Plt Count 200
Sodium 136
Potassium 4.3
Chloride 108 H
Carbon Dioxide 22
BUN 13
Creatinine 0.6
Glucose 92
Calcium 8.7
Vital Signs:
Vital Signs
Temp Pulse Resp BP Pulse Ox
97.5 F 59 17 135/65 96
12/08/24 23:23 12/08/24 23:23 12/08/24 23:23 12/08/24 23:23 12/08/24 23:23
I&O
12/07/24 12/08/24 12/09/24
06:59 06:59 06:59
Intake Total 660 / 660 780 / 780
Balance 660 / 660 780 / 780
[2024-12-09 07:51] VITALS: BP 142/80
[2024-12-09] MEDS: CLOBETASOL PROPIONATE 0.05% OINTMENT 1 APPLIC TOPICAL ×2 (07:51→19:37)
[2024-12-09] MEDS: VIBRAMYCIN 100 MG PO ×2 (07:55→19:36)
[2024-12-09] MEDS: MOBIC 7.5 MG PO (07:55)
[2024-12-09] MEDS: IMODIUM 2 MG PO (09:44)
--- NOTE | 2024-12-09 10:27 | PHA.VAN.IN ---
Assessment
- Assessment
Renal Function: Appears similar to baseline
Concomitant Antimicrobials: cefazolin, doxycycline
AUC Dosing Plan
- Dosing Variables
Dosing Weight (kg): 57
Dosing CrCl (ml/min): 57
Vd coefficient (L/kg): 0.7
- Empiric Dosing
Maintenance Regimen: Vanc 1000mg Q24H - first dose now then 12/10 0600 in lieu of load
Estimated AUC (mcg*h/mL): 497
Estimated Peak (mcg*h/mL): 35
Estimated Trough (mcg/ml): 10.7
Estimated Half Life (H): 13.4
- Monitoring
No levels ordered at this time: consider levels in next few days
Pharmacokinetics Vancomycin I
- -
Patient Age: 84
Patient Sex: Female
Vancomycin Day #: 1
Indication: Skin And Soft Tissue
Requesting Provider: Dr. Bliss / Dany Osorio
Pertinent Antimicrobial Allergies:
amoxicillin - N/V
bacitracin / clarithromycin / neomycin (neosporin) - rash
penicillins - N/V
Height / Weight:
Height 5 ft 2 in
Actual Weight 57.379 kg
- Vital Signs / Lab Results
Temp Pulse Resp BP Pulse Ox
97.3 F 79 16 142/80 97
12/09/24 07:51 12/09/24 07:51 12/09/24 07:51 12/09/24 07:51 12/09/24 08:15
Lab Results - Hematology
12/06/24 12/08/24 12/09/24
16:35 05:06 05:07
WBC 8.9 8.1 8.1
Band Neutrophils Not Reportable
Lab Results - Chemistry
12/06/24 12/08/24 12/09/24
16:35 05:06 05:07
BUN 19 H 16 13
Creatinine 0.7 0.7 0.6
Estimated Creat Clear 49 57
Microbiology Results
12/09/24 03:59 C. difficile GDH Antigen & Toxins - Final
Feces/Stool Negative for toxigenic C.difficile
12/06/24 22:37 MRSA Screen - Final
Nose No Methicillin Resistant Staphylococcus aureus isolated.
[2024-12-09] MEDS: VANCOCIN 200 IV (11:04)
--- NOTE | 2024-12-09 12:54 | W.PN.ID1 ---
Date of Service
Date of Service: December 09, 2024
Today's Communication
erythema persists
Assessment / Plan
1. Probable tick bite with insect removed by patient from her leg with sequelae of erythema migrans suggestive of Lyme Disease with laboratory studies pending/ Lyme IgG neg /no Grady done
Symptomatic relief of pruritus with Calamine lotion has been given ,small area of superficial erosion,no further pruritus
Wound care seeing patient
2. Monitor skin erythema with decreased induration today and slight fading of erythema with no progression beyond inked margins,generally improved
Admission EOS of 10%,ESR 1, CRP 22
3. In older patient obtain EKG 12 lead to assess for heart block in setting of possible LYME
4. For additional symptoms evaluate for other tick-borne disease ie anaplasma, ehrlichiosis, RMSF , babesiosis
5. Doxycycline drug of choice for early disease to be continued 10 days 100 mg po Q 12 H
6. Basal cell carcinoma scalp with outpatient follow up planned with continuation in hospital of local care and topical treatment as instructed by dermatology
7. Diarrhea this AM with liquid stool which patent described as black followed by subsequent light color liquid stools,without cramping //C.diff screen Neg
8 Patient remains afebrile without leukocytosis and is ambulation in halls for exercise
Chief Complaint
-: Cellulitis (erythema migrans in leg area of recent tick bite with decreasing edema and continued erythema without pain and less pruritis)
Subjective / Review of Systems
Review of Systems: No Fever, No Chills, No Headache, No Pharyngitis, No Stiff Neck, No Swollen Lymph Nodes, No Cough, No Sputum Production, No Chest Pain, No Palpitations, No Abdominal Pain, No Nausea, No Vomiting, Diarrhea, No Dysuria, No Joint
Pain and Other (cellulitis at site of itick bite)
Vital Signs / Physical Exam
Vital Signs
Vital Signs
Temp Pulse Resp BP Pulse Ox
97.3 F 79 16 142/80 97
12/09/24 07:51 12/09/24 07:51 12/09/24 07:51 12/09/24 07:51 12/09/24 08:15
Physical Exam
Constitutional: No Acute Distress, Well Developed, Comfortable and Non-toxic (patient feeling better except for diarrhea and was met her while she was walking out in [place] for exercise)
Head: Normocephalic
Eyes: Pupils Equal, Pupils Round, No Conjunctival Hemorrhage and Sclera Anicteric
Oropharyngeal: Benign
Cardiovascular: Regular Rate
Pulmonary: Clear and Non Labored
Gastrointestinal: Soft, Non Tender, Non Distended, Normal Bowel Sounds, No Rebound and No Guarding
Extremities: Other (good ROM, ambulatory)
Skin: Warm, Dry and Other (continued extensive erythema at area of tick bite, less induration, no pain ,no pruritis ,consistant with erythema migrans)
Neurological: Awake, Alert, Oriented, AO x 3, Normal Gait, Normal Muscle Strength and No Motor Deficits
Psychological: Calm
Lines: PIV
Objective Data
Lab Data
Lab Results
12/09/24 05:07
12/09/24 05:07
ESR 1 mm/hour (0-20) 12/06/24 16:35
Estimated Creat Clear 57 ml/min 12/09/24 05:07
C-Reactive Protein 22.00 mg/L (0.0-10.00) H 12/06/24 16:35
Most recent labs reviewed.
Microbiology: Report Reviewed
Micro Results:
12/09/24 03:59 C. difficile GDH Antigen & Toxins - Final
Feces/Stool Negative for toxigenic C.difficile
12/06/24 22:37 MRSA Screen - Final
Nose No Methicillin Resistant Staphylococcus aureus isolated.
Care Review
Total Time Spent with Patient (in minutes): 35
complete Doxycycline 10 days
--- NOTE | 2024-12-09 15:11 | CM ---
Spoke with pt in room.
Currently on IV antibiotics.
As per ID may be switched to po at discharge.
PT lives with .
Offered VN pt is unsure of need at dc.
PLAN Home assess for VN need at discharge.
[2024-12-09 15:13] VITALS: BP 133/88
[2024-12-09] MEDS: LIPITOR 10 MG PO (17:01)
[2024-12-09] MEDS: OSCAL 500 + D 500 MG PO (17:01)
[2024-12-09] MEDS: LOVENOX 40 MG SC (17:02)
[2024-12-09] MEDS: TENORMIN 25 MG PO (17:22)
[2024-12-09] MEDS: BENADRYL ELIXIR 12.5 MG PO (21:10)
[2024-12-09] MEDS: MELATONIN 5 MG PO (21:10)
[2024-12-09] MEDS: KLONOPIN 0.5 MG PO (21:10)
[2024-12-09 23:00] VITALS: BP 114/60
[2024-12-10] MEDS: VANCOCIN 200 IV (05:57)
[2024-12-10] MEDS: VIBRAMYCIN 100 MG PO ×2 (07:02→19:11)
[2024-12-10] MEDS: VISBIOME 1 CAP PO ×2 (07:02→08:17)
[2024-12-10] MEDS: MOBIC 7.5 MG PO (07:02)
[2024-12-10] MEDS: CLOBETASOL PROPIONATE 0.05% OINTMENT 1 APPLIC TOPICAL ×2 (07:03→19:11)
[2024-12-10 07:27] VITALS: BP 136/76
[2024-12-10 08:17] LABS: Hematocrit 39.9 % (37.0-47.0); Hemoglobin 13.1 g/dL (12.0-16.0); Mean Corp Hgb Conc. 32.8 g/dL (33.0-37.0); Mean Corpuscular Volume 88.3 fL (81.0-99.0); Mean Platelet Volume 9.5 fL (7.4-10.4); Platelet Count 247 10^3/uL (130-400); Red Blood Cell Count 4.52 10^6/uL (4.20-5.40); Red Cell Dist. Width 12.7 % (11.5-14.5); White Blood Cell Count 9.8 10^3/uL (4.8-10.8)
[2024-12-10 08:39] LABS: Blood Urea Nitrogen 11 mg/dl (7-17); Calcium 9.5 mg/dl (8.4-10.2); Carbon Dioxide 28 mmol/L (22-30); Chloride 104 mmol/L (98-107); Estimated Creatinine Clearance 49 ml/min; Glucose 91 mg/dl (70-99); Phosphorus 3.4 mg/dl (2.5-4.5); Potassium 4.5 mmol/L (3.5-5.1); Sodium 138 mmol/L (135-145); eGFR > 60.00
--- NOTE | 2024-12-10 09:36 | W.PN.HOSP.TC ---
Today's Communication/Plan
-
abx as per ID
bedtime Benadryl dose increased to 25 mg HS
calamine lotion prn
imodium prn, though diarrhea appears to be resolved at this time.
Assessment / Plan
Assessment / Plan
Physical Exam
General: No acute distress, appears comfortable at this time
HEENT: NormoCephalic, Moist mucous membranes and Atraumatic Hard of Hearing
Respiratory: Clear
Cardiac: S1/S2 and Regular Rhythm; No Murmur or Rub
GI: Soft, Non Tender, Non Distended and Normal Bowel Sounds
Musculoskeletal: No Clubbing, No Cyanosis and No Edema
Skin: Rash erythema right thigh, posterior wound dressing clean dry intact
Neuro: AOx3 conversant coherent
84F HTN HLD Carotid stenosis s/p b/l CEA here with worsening Rt thigh erythema cellulitis following suspected Tick Bite.
# Right thigh cellulitis
# Right thigh posterior ulceration
#hx tick bite
- Duplex no evidence of DVT
-Lyme serology neg though false neg are known to occur w/in 3-4 weeks of infection
-Cont Doxycycline, Ancef switched to Vancomycin d/t lack of improvement erythema
-ID eval appreciated Vancomycin switched to Daptomycin
-Tylenol as needed for fever pain
-Continue to monitor
-calamine lotion prn itching
-benadryl prn itching/anxiety/sleep
-Wound care
#arthritis
cont home meloxicam
prn Tylenol
# History for hypertension
- Atenolol continued
# Hyperlipidemia
-Statin continued
# Basal cell carcinoma on the back of head
-Continue home clobetasol twice a day
# Anxiety
-Clonazepam continued
-Melatonin continued for sleep
-prn Benadryl as above
# DVT prophylaxis
-Lovenox subcu
# CODE STATUS
-Full code
I spent a total of 40 minutes with the patient or on the floor. More than 50% of this time involved counseling and coordination of care.
Anticipated Discharge: 24 - 48 hours
Subjective/Interval History
-
Date of Service: December 10, 2024
No acute distress, ambulatory without need for assist device, appears comfortable. Diarrhea since resolved. 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
Objective Data
-
Labs:
Laboratory Results
12/10/24
07:55
WBC 9.8
Hgb 13.1
Hct 39.9
Plt Count 247 D
Sodium 138
Potassium 4.5
Chloride 104
Carbon Dioxide 28
BUN 11
Creatinine 0.7
Glucose 91
Calcium 9.5
Vital Signs:
Vital Signs
Temp Pulse Resp BP Pulse Ox
97.8 F 70 16 136/76 96
12/10/24 07:27 12/10/24 07:27 12/10/24 07:27 12/10/24 07:27 12/10/24 08:00
I&O
12/09/24 12/10/24 12/11/24
06:59 06:59 06:59
Intake Total 780 / 780 180 / 180 140 / 140
Balance 780 / 780 180 / 180 140 / 140
--- NOTE | 2024-12-10 09:42 | PHA.VAN.FU ---
Vancomycin Assessment / Plan
- Assessment
Renal Function: Stable
WBC's are: WNL
In the past 24 hrs, patient has been: Afebrile
Concomitant Antimicrobials: PO doxycycline
- Dosing Plan
Continue: vancomycin 1000 mg po daily - first dose 12/09
- Monitoring Plan
No level(s) ordered at this time: consider levels after Thursday dose ( 4th maint dose)
- Follow Up
Pharmacy will continue to follow.
Vancomycin Follow UP
- -
Patient Age: 84
Patient Sex: Female
Vancomycin Day #: 2
Indication: Skin And Soft Tissue
Requesting Provider: Dr. Bliss / Dany Osorio
Pertinent Antimicrobial Allergies:
amoxicillin - N/V
bacitracin / clarithromycin / neomycin (neosporin) - rash
penicillins - N/V
Height / Weight:
Height 5 ft 2 in
Actual Weight 57.379 kg
- Vital Signs / Lab Results
Temp Pulse Resp BP Pulse Ox
97.8 F 70 16 136/76 96
12/10/24 07:27 12/10/24 07:27 12/10/24 07:27 12/10/24 07:27 12/10/24 08:00
Lab Results - Hematology
12/08/24 12/09/24 12/10/24
05:06 05:07 07:55
WBC 8.1 8.1 9.8
Lab Results - Chemistry
12/08/24 12/09/24 12/10/24
05:06 05:07 07:55
BUN 16 13 11
Creatinine 0.7 0.6 0.7
Estimated Creat Clear 49 57 49
Microbiology Results
12/09/24 03:59 C. difficile GDH Antigen & Toxins - Final
Feces/Stool Negative for toxigenic C.difficile
12/06/24 22:37 MRSA Screen - Final
Nose No Methicillin Resistant Staphylococcus aureus isolated.
--- NOTE | 2024-12-10 12:45 | W.PN.ID1 ---
Date of Service
Date of Service: December 10, 2024
Today's Communication
Continue doxycycline. Change vancomycin to daptomycin. Follow for clinical improvement.
Assessment / Plan
Right thigh cellulitis
Suspected tick bite
Recommendations:
Continue with doxycycline.
Continued spread of erythema beyond previously demarcated borders.
Transition to daptomycin 6 mg IV every 24 hours.
Follow-up for clinical improvement.
Lyme serology noted to be negative, although may have been drawn too early.
Chief Complaint
-: Cellulitis (erythema migrans in leg area of recent tick bite with decreasing edema and continued erythema without pain and less pruritis)
Subjective / Review of Systems
Patient seen and examined. No fevers.
Vital Signs / Physical Exam
Vital Signs
Vital Signs
Temp Pulse Resp BP Pulse Ox
97.8 F 70 16 136/76 96
12/10/24 07:27 12/10/24 07:27 12/10/24 07:27 12/10/24 07:27 12/10/24 08:00
Physical Exam
Constitutional: No Acute Distress, Comfortable and Non-toxic
Eyes: Sclera Anicteric
Cardiovascular: S1/S2; Negative S3/S4
Gastrointestinal: Soft, Non Tender and Non Distended
Skin: Other (Marked erythema noted of the right posterior thigh)
Neurological: Awake and Alert
Psychological: Calm
Objective Data
Lab Data
Lab Results
12/10/24 07:55
12/10/24 07:55
ESR 1 mm/hour (0-20) 12/06/24 16:35
Estimated Creat Clear 49 ml/min 12/10/24 07:55
C-Reactive Protein 22.00 mg/L (0.0-10.00) H 12/06/24 16:35
Most recent labs reviewed.
Micro Results:
12/09/24 03:59 C. difficile GDH Antigen & Toxins - Final
Feces/Stool Negative for toxigenic C.difficile
12/06/24 22:37 MRSA Screen - Final
Nose No Methicillin Resistant Staphylococcus aureus isolated.
Care Review
Plan reviewed with: Physician (Hospitalist)
[2024-12-10] MEDS: CUBICIN 12 MG IV (13:36)
[2024-12-10 15:25] VITALS: BP 155/83
[2024-12-10] MEDS: OSCAL 500 + D 500 MG PO (17:05)
[2024-12-10] MEDS: TENORMIN 25 MG PO (17:05)
[2024-12-10] MEDS: LOVENOX 40 MG SC (17:05)
[2024-12-10] MEDS: MIRALAX 17 GRAMS PO (17:14)
[2024-12-10] MEDS: BENADRYL ELIXIR 25 MG PO (21:00)
[2024-12-10] MEDS: MELATONIN 5 MG PO (21:00)
[2024-12-10] MEDS: KLONOPIN 0.5 MG PO (21:00)
[2024-12-10 23:00] VITALS: BP 110/54
[2024-12-11 06:02] LABS: Hematocrit 36.3 % (37.0-47.0); Hemoglobin 11.9 g/dL (12.0-16.0); Mean Corp Hgb Conc. 32.8 g/dL (33.0-37.0); Mean Corpuscular Hgb 29.2 pg (27.0-31.0); Mean Corpuscular Volume 89.2 fL (81.0-99.0); Platelet Count 229 10^3/uL (130-400); Red Blood Cell Count 4.07 10^6/uL (4.20-5.40); Red Cell Dist. Width 12.8 % (11.5-14.5); White Blood Cell Count 10.2 10^3/uL (4.8-10.8)
[2024-12-11 06:22] LABS: Blood Urea Nitrogen 17 mg/dl (7-17); Calcium 8.7 mg/dl (8.4-10.2); Carbon Dioxide 24 mmol/L (22-30); Chloride 108 mmol/L (98-107); Estimated Creatinine Clearance 57 ml/min; Glucose 81 mg/dl (70-99); Phosphorus 3.9 mg/dl (2.5-4.5); Potassium 4.6 mmol/L (3.5-5.1); Sodium 136 mmol/L (135-145); eGFR > 60.00
--- NOTE | 2024-12-11 06:27 | W.PN.HOSP.TC ---
Today's Communication/Plan
-
Cont abx as per ID
Assessment / Plan
Assessment / Plan
Physical Exam
General: No acute distress, appears comfortable at this time
HEENT: NormoCephalic, Moist mucous membranes and Atraumatic Hard of Hearing
Respiratory: Clear
Cardiac: S1/S2 and Regular Rhythm; No Murmur or Rub
GI: Soft, Non Tender, Non Distended and Normal Bowel Sounds
Musculoskeletal: No Clubbing, No Cyanosis and No Edema
Skin: Rash erythema right thigh, posterior wound dressing clean dry intact
Neuro: AOx3 conversant coherent
84F HTN HLD Carotid stenosis s/p b/l CEA here with worsening Rt thigh erythema cellulitis following suspected Tick Bite.
# Right thigh cellulitis
# Right thigh posterior ulceration
#hx tick bite
- Duplex no evidence of DVT
-Lyme serology neg though false neg are known to occur w/in 3-4 weeks of infection
-Cont Doxycycline, Ancef switched to Vancomycin d/t lack of improvement erythema
-ID eval appreciated Vancomycin switched to Daptomycin, cont abx as per ID
-Tylenol as needed for fever pain
-Continue to monitor
-calamine lotion prn itching
-benadryl prn itching/anxiety/sleep
-Wound care
#arthritis
cont home meloxicam
prn Tylenol
# History for hypertension
- Atenolol continued
# Hyperlipidemia
-Statin continued
# Basal cell carcinoma on the back of head
-Continue home clobetasol twice a day
# Anxiety
-Clonazepam continued
-Melatonin continued for sleep
-prn Benadryl as above
# DVT prophylaxis
-Lovenox subcu
# CODE STATUS
-Full code
I spent a total of 40 minutes with the patient or on the floor. More than 50% of this time involved counseling and coordination of care.
Anticipated Discharge: Within 24 hours
Subjective/Interval History
-
Date of Service: December 11, 2024
No acute distress. Appears comforttable. Ambulatory without need for assist device. 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
Objective Data
-
Labs:
Laboratory Results
12/11/24
04:09
WBC 10.2
Hgb 11.9 L
Hct 36.3 L
Plt Count 229
Sodium 136
Potassium 4.6
Chloride 108 H
Carbon Dioxide 24
BUN 17
Creatinine 0.6
Glucose 81
Calcium 8.7
Vital Signs:
Vital Signs
Temp Pulse Resp BP Pulse Ox
99.3 F 98 18 110/54 97
12/10/24 23:00 12/10/24 23:00 12/10/24 23:00 12/10/24 23:00 12/10/24 23:00
I&O
12/09/24 12/10/24 12/11/24
06:59 06:59 06:59
Intake Total 780 / 780 180 / 180 650 / 650
Balance 780 / 780 180 / 180 650 / 650
[2024-12-11 07:00] VITALS: BP 143/64
[2024-12-11] MEDS: MOBIC 7.5 MG PO (07:00)
[2024-12-11] MEDS: VISBIOME 2 CAP PO (07:00)
[2024-12-11] MEDS: VIBRAMYCIN 100 MG PO ×2 (07:00→21:08)
[2024-12-11] MEDS: CLOBETASOL PROPIONATE 0.05% OINTMENT 1 APPLIC TOPICAL ×2 (07:02→21:13)
[2024-12-11] MEDS: CUBICIN 12 MG IV (13:11)
--- NOTE | 2024-12-11 14:06 | W.PN.ID1 ---
Date of Service
Date of Service: December 11, 2024
Today's Communication
Continue current antibiotics.
Assessment / Plan
Right thigh cellulitis
- Decreased overall erythema today.
Suspected tick bite
Recommendations:
Continue with doxycycline given reported recent
Continue daptomycin
Follow-up for clinical improvement.
Lyme serology noted to be negative, although may have been drawn too early.
����������������������������������������������������������
Chief Complaint
-: Cellulitis (erythema migrans in leg area of recent tick bite with decreasing edema and continued erythema without pain and less pruritis)
Subjective / Review of Systems
Review of Systems: No Fever and No Chills
Vital Signs / Physical Exam
Vital Signs
Vital Signs
Temp Pulse Resp BP Pulse Ox
98.0 F 70 16 143/64 99
12/11/24 07:00 12/11/24 07:00 12/11/24 07:00 12/11/24 07:00 12/11/24 07:00
Physical Exam
Constitutional: No Acute Distress, Comfortable and Non-toxic
Eyes: Sclera Anicteric
Gastrointestinal: Non Distended
Skin: Other (Mildly improved erythema noted of the right posterior thigh)
Neurological: Awake and Alert
Psychological: Calm
Objective Data
Lab Data
Lab Results
12/11/24 04:09
12/11/24 04:09
ESR 1 mm/hour (0-20) 12/06/24 16:35
Estimated Creat Clear 57 ml/min 12/11/24 04:09
C-Reactive Protein 22.00 mg/L (0.0-10.00) H 12/06/24 16:35
Most recent labs reviewed.
Micro Results:
12/09/24 03:59 C. difficile GDH Antigen & Toxins - Final
Feces/Stool Negative for toxigenic C.difficile
12/06/24 22:37 MRSA Screen - Final
Nose No Methicillin Resistant Staphylococcus aureus isolated.
Care Review
Plan reviewed with: Physician (Hospitalist)
[2024-12-11 15:00] VITALS: BP 129/69
[2024-12-11] MEDS: OSCAL 500 + D 500 MG PO (17:04)
[2024-12-11] MEDS: TENORMIN 25 MG PO (17:04)
[2024-12-11] MEDS: LOVENOX 40 MG SC (17:04)
[2024-12-11] MEDS: BENADRYL ELIXIR 25 MG PO (21:06)
[2024-12-11] MEDS: KLONOPIN 0.5 MG PO (21:07)
[2024-12-11] MEDS: MELATONIN 5 MG PO (21:08)
[2024-12-11 23:00] VITALS: BP 114/51
[2024-12-12 06:12] LABS: Hematocrit 34.4 % (37.0-47.0); Hemoglobin 11.3 g/dL (12.0-16.0); Mean Corp Hgb Conc. 32.8 g/dL (33.0-37.0); Mean Corpuscular Hgb 29.1 pg (27.0-31.0); Mean Corpuscular Volume 88.7 fL (81.0-99.0); Mean Platelet Volume 9.9 fL (7.4-10.4); Platelet Count 210 10^3/uL (130-400); Red Blood Cell Count 3.88 10^6/uL (4.20-5.40); White Blood Cell Count 9.2 10^3/uL (4.8-10.8)
[2024-12-12 06:34] LABS: Blood Urea Nitrogen 17 mg/dl (7-17); Calcium 8.9 mg/dl (8.4-10.2); Carbon Dioxide 24 mmol/L (22-30); Chloride 109 mmol/L (98-107); Estimated Creatinine Clearance 49 ml/min; Glucose 84 mg/dl (70-99); Phosphorus 3.7 mg/dl (2.5-4.5); Potassium 4.3 mmol/L (3.5-5.1); Sodium 137 mmol/L (135-145); eGFR > 60.00
[2024-12-12 07:00] VITALS: BP 127/70
[2024-12-12] MEDS: VISBIOME 2 CAP PO (08:39)
[2024-12-12] MEDS: VIBRAMYCIN 100 MG PO (08:39)
[2024-12-12] MEDS: MOBIC 7.5 MG PO (08:39)
[2024-12-12] MEDS: CLOBETASOL PROPIONATE 0.05% OINTMENT 1 APPLIC TOPICAL (08:41)
--- NOTE | 2024-12-12 11:42 | W.PN.ID1 ---
Date of Service
Date of Service: December 12, 2024
Today's Communication
Continue doxycycline and daptomycin, see below�
Assessment / Plan
Right thigh cellulitis
- Decreased overall erythema today.
Suspected tick bite
Recommendations:
Continue with doxycycline given reported recent tick bite
Right leg cellulitis overall improved.
Continue daptomycin for an additional 7 days.
- Holding statin while remains on daptomycin.
Will place outpatient infusion sheet on paper chart.
Lyme serology noted to be negative, although may have been drawn too early.
����������������������������������������������������������
Chief Complaint
-: Cellulitis (erythema migrans in leg area of recent tick bite with decreasing edema and continued erythema without pain and less pruritis)
Subjective / Review of Systems
Patient seen and examined. Overall feels improved today.
Vital Signs / Physical Exam
Vital Signs
Vital Signs
Temp Pulse Resp BP Pulse Ox
99.0 F 76 16 127/70 97
12/12/24 07:00 12/12/24 07:00 12/12/24 07:00 12/12/24 07:00 12/12/24 08:49
Physical Exam
Constitutional: No Acute Distress, Comfortable and Non-toxic
Eyes: Sclera Anicteric
Gastrointestinal: Non Distended
Skin: Other (Improved erythema noted of the right posterior thigh)
Neurological: Awake and Alert
Psychological: Calm
Objective Data
Lab Data
Lab Results
12/12/24 05:27
12/12/24 05:27
ESR 1 mm/hour (0-20) 12/06/24 16:35
Estimated Creat Clear 49 ml/min 12/12/24 05:27
C-Reactive Protein 22.00 mg/L (0.0-10.00) H 12/06/24 16:35
Most recent labs reviewed.
Micro Results:
12/09/24 03:59 C. difficile GDH Antigen & Toxins - Final
Feces/Stool Negative for toxigenic C.difficile
12/06/24 22:37 MRSA Screen - Final
Nose No Methicillin Resistant Staphylococcus aureus isolated.
Care Review
Plan reviewed with: Physician (Hospitalist)
[2024-12-12] MEDS: CUBICIN 12 MG IV (12:34)
--- NOTE | 2024-12-12 13:01 | W.PN.HOSP.TC ---
Today's Communication/Plan
-
Assessment / Plan
Assessment / Plan
Physical Exam
General: No acute distress, appears comfortable at this time
HEENT: NormoCephalic, Moist mucous membranes and Atraumatic Hard of Hearing
Respiratory: Clear
Cardiac: S1/S2 and Regular Rhythm; No Murmur or Rub
GI: Soft, Non Tender, Non Distended and Normal Bowel Sounds
Musculoskeletal: No Clubbing, No Cyanosis and No Edema
Skin: Rash erythema right thigh, posterior wound dressing clean dry intact
Neuro: AOx3 conversant coherent
84F HTN HLD Carotid stenosis s/p b/l CEA here with worsening Rt thigh erythema cellulitis following suspected Tick Bite.
# Right thigh cellulitis
# Right thigh posterior ulceration
#hx tick bite
- Duplex no evidence of DVT
-Lyme serology neg though false neg are known to occur w/in 3-4 weeks of infection
-Cont Doxycycline for a total of 14days
-Started on dapto by ID, noted improvement
-Tylenol as needed for fever pain
-Continue to monitor
-calamine lotion prn itching
-benadryl prn itching/anxiety/sleep
-Wound care
#arthritis
cont home meloxicam
prn Tylenol
# History for hypertension
- Atenolol continued
# Hyperlipidemia
-Statin continued
# Basal cell carcinoma on the back of head
-Continue home clobetasol twice a day
# Anxiety
-Clonazepam continued
-Melatonin continued for sleep
-prn Benadryl as above
# DVT prophylaxis
-Lovenox subcu
# CODE STATUS
-Full code
If CM able to set up outpatient infusion center for Dapto IV. If able to set this up then she can be discharged home.
Anticipated Discharge: Within 24 hours
Subjective/Interval History
-
Date of Service: December 12, 2024
seen and examined. no new complaints. no acute ovenright events
states that the swelling and redness have improved
Objective Data
-
Labs:
Laboratory Results
12/12/24
05:27
WBC 9.2
Hgb 11.3 L
Hct 34.4 L
Plt Count 210
Sodium 137
Potassium 4.3
Chloride 109 H
Carbon Dioxide 24
BUN 17
Creatinine 0.7
Glucose 84
Calcium 8.9
Vital Signs:
Vital Signs
Temp Pulse Resp BP Pulse Ox
99.0 F 76 16 127/70 97
12/12/24 07:00 12/12/24 07:00 12/12/24 07:00 12/12/24 07:00 12/12/24 08:49
I&O
12/11/24 12/12/24 12/13/24
06:59 06:59 06:59
Intake Total 650 / 650 320 / 320
Balance 650 / 650 320 / 320
[2024-12-12 13:46] LABS: Creatine Phosphokinase 73 U/L (30-135)
--- NOTE | 2024-12-12 14:44 | CM ---
MD ordered for patient to have out patient infusion for antibiotics.
Spoke with Brittani from Out Pt infusion.
[facility] information faxed to [phone].
Brittani said all information received and pt to arrive at 1:45 pm tomorrow at [place] at [address] for infusion of antibiotics.
Pt said her or herself will drive her home and to out pt infusion center tomorrow.Pt is in agreement with plan.
IMM reviewed with pt . IMM signed on chart.
PLAN Home with out pt Infusion
[2024-12-12 15:00] VITALS: BP 144/68
== END 2024-12-12 16:08 | disposition home or self-care (01) | DRG 868 ==
LOC: 3 WEST ACU 17:18
PROVIDERS: Internal Medicine; Physician Assistant Medical; ADMITTING PHYSICIAN Internal Medicine; ATTENDING PHYSICIAN Hospitalist; EMERGENCY PHYSICIAN Student in an Organized Health Care Education/Training Program; FAMILY PHYSICIAN Family Medicine; OTHER PHYSICIAN Hospitalist
DX: A69.20 Lyme disease, unspecified (principal); L03.115 Cellulitis of right lower limb; C44.519 Basal cell carcinoma of skin of other part of trunk; F41.9 Anxiety disorder, unspecified; W57.XXXA Bitten or stung by nonvenomous insect and other nonvenomous arthropods, initial encounter; L29.9 Pruritus, unspecified; E78.00 Pure hypercholesterolemia, unspecified; M81.0 Age-related osteoporosis without current pathological fracture
CPT/HCPCS: 80048; 82550; 83735; 84100; 85025; 85027; 85652; 86140; 86618; 87070; 87324; 87449; 93971; 96365; 96375; 99284; J0878

== ENCOUNTER 2024-12-19 10:56 | Outpatient (RCR) | payer MEDICARE, OTHER, SELFPAY ==
[2024-12-13 13:45] VITALS: BP 134/58
[2024-12-13] MEDS: CUBICIN 112 MG IV (14:11)
[2024-12-14 13:34] VITALS: BP 139/86
[2024-12-14] MEDS: CUBICIN 112 MG IV (13:49)
[2024-12-15 13:10] VITALS: BP 122/58
[2024-12-15] MEDS: CUBICIN 112 MG IV (13:27)
[2024-12-16] MEDS: CUBICIN 112 MG IV (07:08)
[2024-12-16 08:02] VITALS: BP 114/55
[2024-12-17 06:57] VITALS: BP 115/71
[2024-12-17] MEDS: CUBICIN 112 MG IV (07:05)
[2024-12-18] MEDS: CUBICIN 112 MG IV (07:56)
[2024-12-18 08:08] VITALS: BP 118/75
[2024-12-19] MEDS: CUBICIN 112 MG IV (11:48)
[2024-12-19 11:49] VITALS: BP 120/62
== END 2024-12-20 08:43 | disposition home or self-care (01) ==
LOC: OID 10:56
PROVIDERS: ATTENDING PHYSICIAN Internal Medicine Infectious Disease; FAMILY PHYSICIAN Family Medicine
DX: L03.115 Cellulitis of right lower limb (principal); L03.90 Cellulitis, unspecified (principal); Z63.79 Other stressful life events affecting family and household
CPT/HCPCS: 96365; J0878